=== PATIENT | male | born 1950 | race Caucasian/White ===

== ENCOUNTER 2017-03-03 14:49 | Inpatient (IN) | payer OTHER, BC ==
[~2017-03-03] VITALS: Ht 182.9 cm; Wt 130.0 kg
[2017-03-03 15:21] LABS: HEMATOCRIT 40.9 % (38.0-50.0); MCH 33.8 PG (29.0-34.0); MCHC 34.5 G/DL (30.0-36.0); MCV 98.1 FL (86-99); MEAN PLAT.VOLUME 8.9 uM^3 (9.0-12.4); PLATELET COUNT 210 K/uL (156-360); RBC DIS.WIDTH-CV 12.7 % (11.8-14.6); RBC DIS.WIDTH-SD 45.7 % (39-53); RED BLOOD COUNT 4.17 M/uL (4.00-5.50); WHITE BLOOD COUNT 8.2 K/uL (4.1-10.2)
[2017-03-03 15:45] LABS: TROP-I INTERPRETATION NEGATIVE; TROPONIN-I < 0.01 ng/mL (0.0-0.30)
[2017-03-03 15:47] LABS: CHLORIDE 95 mEq/L (99-109); POTASSIUM 4.2 mEq/L (3.7-5.4); SODIUM 138 mEq/L (136-147)
[2017-03-03 15:50] LABS: ANION GAP 12 MEQ/L (2-14)
[2017-03-03 15:52] LABS: GFR ESTIMATE (CALCULATED) > 59 mL/min/
[2017-03-03 15:53] LABS: UREA NITROGEN (BUN) 10 mg/dL (9-23)
[2017-03-03] MEDS ORDERED: INSULIN PUMP SCCONT (18:34)
[2017-03-03] MEDS ORDERED: LIPITOR20 MG PO (20:25)
[2017-03-03] MEDS ORDERED: ZESTORETIC 20-1 EAC2 PO (20:25)
[2017-03-03] MEDS ORDERED: NIZORAL 2% CREA15 GM TP (20:26)
[2017-03-03] MEDS ORDERED: ADVIL200 MG PO (20:26)
[2017-03-03] MEDS ORDERED: ALEVE220 MG PO (20:26)
[2017-03-03] MEDS ORDERED: ARTIFICIAL TEAR1510 BOTH EYES (20:27)
[2017-03-03] MEDS ORDERED: DAY TIME COLD-1 EACH PO (20:27)
[2017-03-03] MEDS ORDERED: ROBITUSSIN100 MG/5 M PO (20:28)
[2017-03-03] MEDS ORDERED: ADVIL COLD &1 TABLET PO (20:28)
[2017-03-04 01:35] VITALS: BP 187/87
[2017-03-04 06:11] LABS: HEMATOCRIT 40.2 % (38.0-50.0); MCH 33.7 PG (29.0-34.0); MCHC 34.6 G/DL (30.0-36.0); MCV 97.3 FL (86-99); MEAN PLAT.VOLUME 8.8 uM^3 (9.0-12.4); PLATELET COUNT 215 K/uL (156-360); RBC DIS.WIDTH-CV 12.6 % (11.8-14.6); RED BLOOD COUNT 4.13 M/uL (4.00-5.50); WHITE BLOOD COUNT 5.6 K/uL (4.1-10.2)
[2017-03-04 07:26] LABS: ALKALINE PHOSPHATASE 79 IU/L (3-129); ANION GAP 8 MEQ/L (2-14); CHLORIDE 98 MEQ/L (99-109); GFR ESTIMATE (CALCULATED) > 59 mL/min/; GLUCOSE 217 mg/dL (70-99); POTASSIUM 4.2 MEQ/L (3.7-5.4); SAMPLE HEMOLYSIS CHECK 0; SAMPLE ICTERIC CHECK 0; SAMPLE LIPEMIA CHECK 0; SODIUM 141 MEQ/L (136-147); TOTAL BILIRUBIN 0.5 MG/DL (0.0-1.0); UREA NITROGEN (BUN) 13 mg/dL (9-23)
[2017-03-04 07:55] VITALS: BP 180/84
[2017-03-04 12:11] VITALS: BP 172/82
[2017-03-04 15:48] VITALS: BP 147/70
[2017-03-04 17:37] LABS: POINT-OF-CARE METER ID UU14174225
[2017-03-04 19:06] LABS: Estimated Average Glucose 137 mg/dL (70-123); HEMOGLOBIN A1c (GLYCOHEMOGLOB) 6.4 % HGB (Below 5.7)
[2017-03-04 19:33] VITALS: BP 175/87
[2017-03-04 22:34] LABS: POINT-OF-CARE METER ID UU14174225
[2017-03-04 23:54] VITALS: BP 142/76
[2017-03-05 04:12] VITALS: BP 178/81
[2017-03-05 07:35] VITALS: BP 180/82
[2017-03-05 08:35] LABS: POINT-OF-CARE METER ID UU13113717
[2017-03-05 10:01] LABS: BASE EXCESS 6.7 mEq/L (-3 to +3); BICARBONATE 31.3 mEq/L (22-26); CARBOXY HGB 2.3 % (0-5); METHEMOGLOBIN 1.8 % (0-1.5); PCO2 43 mm Hg (35-45); PO2 62 mm Hg (80-100); pH 7.47 (7.35-7.45)
[2017-03-05 10:02] LABS: COMMENTS - BLOOD GASES A+C+; DEVICE RA; FI02 21 %; SITE LRA; TOTAL RESP RATE 18 resp/min
[2017-03-05 11:00] VITALS: BP 170/97
[2017-03-05 12:02] LABS: POINT-OF-CARE METER ID UU13113717
[2017-03-05] MEDS ORDERED: LEVAQUIN750 MG PO (13:44)
[2017-03-05] MEDS ORDERED: NEOMYC-POLYM-GR10 ML LEFT EYE (13:45)
[2017-03-05] MEDS ORDERED: ZESTORETIC 20-1 EAC2 PO (13:45)
[2017-03-05] MEDS ORDERED: TESSALON200 MG PO (13:46)
== END 2017-03-05 14:30 | disposition home or self-care (01) | DRG 194 ==
LOC: EME 14:49 → 5SOUTH 22:39 → EDOF 22:39 → ENRESERV 22:42 → 5SOUTH 03-04 01:12 → ENPENDDIS 03-05 → 5SOUTH 03-05 14:30
PROVIDERS: Internal Medicine
DX: J18.9 Pneumonia, unspecified organism (principal); R09.02 Hypoxemia; I10 Essential (primary) hypertension; E78.5 Hyperlipidemia, unspecified; R73.03 Prediabetes; H10.9 Unspecified conjunctivitis; J98.11 Atelectasis; K80.20 Calculus of gallbladder without cholecystitis without obstruction; K76.0 Fatty (change of) liver, not elsewhere classified; Z66 Do not resuscitate; Z68.38 Body mass index [BMI] 38.0-38.9, adult; Z87.891 Personal history of nicotine dependence; Z80.1 Family history of malignant neoplasm of trachea, bronchus and lung; Z85.828 Personal history of other malignant neoplasm of skin; Z82.49 Family history of ischemic heart disease and other diseases of the circulatory system; Z83.3 Family history of diabetes mellitus
CPT/HCPCS: 36600; 71010; 71020; 71250; 71275; 80048; 80053; 82803; 82948; 83036; 83605; 84484; 85027; 85379; 87040; 93005; 94640; 94799; 99202; 99281; 99285; J1650; J1815; J1956; J2930; J7030